=== PATIENT | male | born 1970 | race African-American/Black ===

== ENCOUNTER 2021-03-16 13:49 | Inpatient (IN) | payer BC ==
[~2021-03-16] VITALS: Ht 193 cm; Wt 154.6 kg
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
[2021-03-16 13:52] VITALS: BP 148/88
[2021-03-16 14:51] LABS: CREATININE 1.4 mg/dL (0.6-1.3); POTASSIUM 3.4 mmol/L (3.5-5.1)
[2021-03-16 15:01] LABS: PROTIME 10.9 Seconds (9.20-11.50)
[2021-03-16 15:09] LABS: ALBUMIN 3.3 g/dL (3.4-5.0); TOTAL PROTEIN 7.3 g/dL (6.4-8.2)
[2021-03-16 15:30] LABS: ABSOLUTE LYMPHOCYTES 0.5 thou/uL (0.8-5.3); ABSOLUTE MONOCYTES 0.3 thou/uL (0.0-1.2); ABSOLUTE NEUTROPHILS 2.9 thou/uL (1.6-8.1); BASOPHILS 0.3 %; HEMATOCRIT 41.2 % (42.0-52.0); HEMOGLOBIN 14.7 gm/dL (14.0-18.0); LYMPHOCYTES 13.3 %; MCH 28.9 pg (26.0-34.0); MCHC 35.7 g/dL (28.0-37.0); MCV 80.9 fL (80.0-100.0); MONOCYTES 8.6 %; MPV 8.6 fl. (7.2-11.1); NUCLEATED RBCS 0 /100WBC; PLATELET COUNT* 113 thou/uL (150-400); POLYS 77.8 %; RDW-CV 13.1 % (10.5-14.5); WBC 3.8 thou/uL (4.0-11.0)
--- NOTE | 2021-03-16 16:09 | EKG ---
[place] [address] ELECTROCARDIOGRAM REPORT Name: QUINTON CASTELLANOS Room: [place] [address] ADM IN ..#: [id number] Admission: 03/16/21 Attend Phys: Devonte Carroll, Discharge: Date of : 74 Date of Service: 03/16/21 1418 Report #: [id number] THIS REPORT FOR: //name// [facility] ED Test Date: 2021-03-16 Test Time: 14:18:39 Pat Name: QUINTON CASTELLANOS Department: Room: [facility] Gender: M [employer] Soup: LC : 1970 Requested By: Alonzo Watts Order Number: [id number] MD: Jesus Voss Measurements Intervals [place] Rate: 85 P: 56 WA: 162 QRS: -18 QRSD: 92 T: 23 QT: 384 QTc: 457 Interpretive Statements Sinus rhythm Probable left atrial enlargement Inferior infarct, old No previous ECG available for comparison Electronically Signed On 03-16-2021 16:09:18 CDT by Jesus Voss [email or web address] <ELECTRONICALLY SIGNED> By: Jesus Voss MD, FACC 03/16/21 1609 1418 1418 Jesus Voss MD, [facility] /EPI
[2021-03-16 17:01] VITALS: BP 119/68
[2021-03-16 17:48] VITALS: BP 147/92
[2021-03-16] MEDS ORDERED: HYDROCHLOROTHIA25 M1 PO (18:10)
[2021-03-16] MEDS ORDERED: NORVASC5 MG PO (18:10)
[2021-03-16] MEDS ORDERED: PROAIR HFA8.5 GM INH (18:10)
[2021-03-16 18:46] VITALS: BP 132/84; BP 143/94
[2021-03-16 20:00] VITALS: BP 143/94
[2021-03-16 22:33] LABS: URINE BILIRUBIN NEGATIVE (Negative); URINE BLOOD 3+ (Negative); URINE COLOR YELLOW; URINE GLUCOSE-RANDOM 1+ (Negative); URINE KETONES TRACE (Negative); URINE LEUKOCYTES-REFLEX NEGATIVE (Negative); URINE NITRITE-REFLEX NEGATIVE (Negative); URINE PROTEIN 3+ (Negative); URINE SPECIFIC GRAVITY >= 1.030 (1.005-1.030)
[2021-03-16 22:35] LABS: URINE CLARITY HAZY
[2021-03-16 22:39] LABS: AMP/METHAMP Negative (Negative); BARBITURATES Negative (Negative); BENZODIAZEPINES Negative (Negative); COCAINE Negative (Negative); METHADONE Negative (Negative); OPIATES Negative (Negative); PCP Negative (Negative); THC Negative (Negative)
[2021-03-16 22:42] LABS: BACTERIA-REFLEX None Seen /HPF (None Seen); CASTS None Seen /LPF (None Seen); CRYSTALS None Seen /LPF (None Seen); SQUAMOUS 0-3 Few /LPF (0-3); URINE RBC 0-2 Rare /HPF (0-2); URINE WBC-REFLEX None Seen /HPF (0-5)
[2021-03-17] VITALS: BP 140/93
[2021-03-17 04:04] VITALS: BP 134/68
[2021-03-17 04:23] LABS: ABSOLUTE LYMPHOCYTES 0.5 thou/uL (0.8-5.3); ABSOLUTE MONOCYTES 0.2 thou/uL (0.0-1.2); ABSOLUTE NEUTROPHILS 3.3 thou/uL (1.6-8.1); BASOPHILS 0.2 %; HEMATOCRIT 38.5 % (42.0-52.0); HEMOGLOBIN 13.7 gm/dL (14.0-18.0); LYMPHOCYTES 11.2 %; MCH 28.8 pg (26.0-34.0); MCHC 35.7 g/dL (28.0-37.0); MCV 80.6 fL (80.0-100.0); MPV 8.1 fl. (7.2-11.1); NUCLEATED RBCS 0 /100WBC; PLATELET COUNT* 134 thou/uL (150-400); POLYS 82.6 %; RBC 4.77 mil/uL (4.50-6.00); RDW-CV 12.9 % (10.5-14.5)
[2021-03-17 05:27] LABS: ALBUMIN 2.9 g/dL (3.4-5.0); CALCIUM 7.8 mg/dL (8.5-10.1); CREATININE 1.3 mg/dL (0.6-1.3); MAGNESIUM 2.3 mg/dL (1.8-2.4); TOTAL BILIRUBIN 0.8 mg/dL (<0.1-1.0)
[2021-03-17 07:51] VITALS: BP 132/77
[2021-03-17 08:46] LABS: BE 5.4 mmol/L (-2 to +3); PCO2 41.1 mmHg (35.0-45.0); pH 7.474 (7.340-7.450)
[2021-03-17 16:00] VITALS: BP 122/79
[2021-03-17 18:29] LABS: CALCIUM 7.8 mg/dL (8.5-10.1); CREATININE 1.3 mg/dL (0.6-1.3); MAGNESIUM 2.3 mg/dL (1.8-2.4); POTASSIUM 3.9 mmol/L (3.5-5.1)
[2021-03-17 18:31] LABS: ALBUMIN 2.8 g/dL (3.4-5.0); DIRECT BILIRUBIN 0.4 mg/dL (<0.1-0.3); TOTAL BILIRUBIN 0.7 mg/dL (<0.1-1.0)
[2021-03-17 19:43] VITALS: BP 120/70; BP 121/66
[2021-03-17 20:00] VITALS: BP 138/83
[2021-03-18] VITALS: BP 108/56
[2021-03-18 03:39] VITALS: BP 110/63
[2021-03-18 05:04] LABS: ABSOLUTE LYMPHOCYTES 0.7 thou/uL (0.8-5.3); ABSOLUTE MONOCYTES 0.7 thou/uL (0.0-1.2); BASOPHILS 0.1 %; HEMATOCRIT 38.8 % (42.0-52.0); HEMOGLOBIN 13.6 gm/dL (14.0-18.0); LYMPHOCYTES 9.3 %; MCH 28.4 pg (26.0-34.0); MCV 81.2 fL (80.0-100.0); NUCLEATED RBCS 0 /100WBC; PLATELET COUNT* 201 thou/uL (150-400); POLYS 81.6 %; RBC 4.78 mil/uL (4.50-6.00); RDW-CV 12.8 % (10.5-14.5); WBC 7.4 thou/uL (4.0-11.0)
[2021-03-18 05:25] LABS: ALBUMIN 2.8 g/dL (3.4-5.0); CALCIUM 8.2 mg/dL (8.5-10.1); CREATININE 1.3 mg/dL (0.6-1.3); MAGNESIUM 2.4 mg/dL (1.8-2.4); TOTAL BILIRUBIN 0.8 mg/dL (<0.1-1.0); TOTAL PROTEIN 6.9 g/dL (6.4-8.2)
[2021-03-18 08:43] VITALS: BP 120/82
[2021-03-18 11:53] VITALS: BP 117/69
[2021-03-18 16:05] VITALS: BP 131/82
[2021-03-18 17:46] LABS: CALCIUM 8.5 mg/dL (8.5-10.1); CREATININE 1.4 mg/dL (0.6-1.3); MAGNESIUM 2.6 mg/dL (1.8-2.4)
[2021-03-18 20:00] VITALS: BP 152/93
[2021-03-19 00:08] VITALS: BP 113/71
[2021-03-19 04:11] VITALS: BP 136/73
[2021-03-19 05:52] LABS: HEMATOCRIT 39.1 % (42.0-52.0); HEMOGLOBIN 13.7 gm/dL (14.0-18.0); MCH 28.3 pg (26.0-34.0); MCHC 34.9 g/dL (28.0-37.0); MCV 81.1 fL (80.0-100.0); NUCLEATED RBCS 0 /100WBC; PLATELET COUNT* 252 thou/uL (150-400); RBC 4.82 mil/uL (4.50-6.00); RDW-CV 12.7 % (10.5-14.5); WBC 9.9 thou/uL (4.0-11.0)
[2021-03-19 06:02] LABS: PREALBUMIN 14.6 mg/dL (18.0-35.7)
[2021-03-19 06:08] LABS: ALBUMIN 2.8 g/dL (3.4-5.0); CALCIUM 8.1 mg/dL (8.5-10.1); CREATININE 1.3 mg/dL (0.6-1.3); TOTAL BILIRUBIN 0.9 mg/dL (<0.1-1.0); TOTAL PROTEIN 6.7 g/dL (6.4-8.2)
[2021-03-19 07:30] VITALS: BP 142/88
[2021-03-19 08:20] LABS: ABSOLUTE LYMPHOCYTES 0.8 thou/uL (0.8-5.3); ABSOLUTE MONOCYTES 0.8 thou/uL (0.0-1.2); ABSOLUTE NEUTROPHILS 8.3 thou/uL (1.6-8.1); PLATELET ESTIMATE ADEQUATE
[2021-03-19 12:00] VITALS: BP 131/71; BP 136/88
[2021-03-19 16:00] VITALS: BP 135/86
[2021-03-19 16:12] LABS: CALCIUM 8.2 mg/dL (8.5-10.1); CREATININE 1.4 mg/dL (0.6-1.3); POTASSIUM 3.9 mmol/L (3.5-5.1); TOTAL BILIRUBIN 0.9 mg/dL (<0.1-1.0); TOTAL PROTEIN 7.2 g/dL (6.4-8.2)
[2021-03-19 20:00] VITALS: BP 135/84
[2021-03-20 00:40] VITALS: BP 144/76
[2021-03-20 04:27] VITALS: BP 135/86
[2021-03-20 07:05] LABS: ABSOLUTE BASOPHILS 0.1 thou/uL (0.0-0.2); ABSOLUTE LYMPHOCYTES 0.7 thou/uL (0.8-5.3); ABSOLUTE MONOCYTES 0.7 thou/uL (0.0-1.2); ABSOLUTE NEUTROPHILS 6.8 thou/uL (1.6-8.1); BASOPHILS 0.8 %; EOSINOPHILS 0.1 %; HEMOGLOBIN 13.9 gm/dL (14.0-18.0); LYMPHOCYTES 8.2 %; MCH 28.4 pg (26.0-34.0); MCHC 34.7 g/dL (28.0-37.0); MCV 81.7 fL (80.0-100.0); MONOCYTES 8.5 %; MPV 7.9 fl. (7.2-11.1); NUCLEATED RBCS 0 /100WBC; PLATELET COUNT* 253 thou/uL (150-400); POLYS 82.4 %; RBC 4.89 mil/uL (4.50-6.00); RDW-CV 12.8 % (10.5-14.5); WBC 8.3 thou/uL (4.0-11.0)
[2021-03-20 07:28] LABS: ALBUMIN 3.1 g/dL (3.4-5.0); CALCIUM 8.2 mg/dL (8.5-10.1); CREATININE 1.2 mg/dL (0.6-1.3); POTASSIUM 4.2 mmol/L (3.5-5.1); TOTAL BILIRUBIN 0.9 mg/dL (<0.1-1.0); TOTAL PROTEIN 6.7 g/dL (6.4-8.2)
[2021-03-20 07:44] LABS: PREALBUMIN 18.2 mg/dL (18.0-35.7)
[2021-03-20 08:00] VITALS: BP 124/73
[2021-03-20 13:03] VITALS: BP 141/86
--- NOTE | 2021-03-20 14:24 | 2DMMODE ---
[place] [address] 2 D/M-MODE ECHOCARDIOGRAM Name: QUINTON CASTELLANOS Room: [address] IN [facility]#: [id number] Admission: 03/16/21 Attend Phys: Devonte Carroll, Discharge: Date of : 74 Date of Service: 03/20/21 1423 Report #: [id number] THIS REPORT FOR: cc: FAM - No family physician/PCP FAM - No family physician/PCP Nba Peterson MD [facility] ~ APPROVED REPORT Study performed: 03/20/2021 10:02:21 EXAM: Comprehensive 2D, Doppler, and color-flow Echocardiogram Patient Location: In-Patient Room #: [facility] Status: routine BSA: 2.71 HR: 60 bpm BP: 135/86 mmHg Rhythm: NSR Other Information Study Quality: Good Indications Dyspnea 2D Dimensions IVSd: 11.24 (7-11mm) LVOT Diam: 24.66 (18-24mm) LVDd: 50.93 mm PWd: 10.85 (7-11mm) Ascending Ao: 33.34 (22-36mm) LVDs: 36.35 (25-40mm) Volumes Left Atrial Volume (Systole) LA ESV Index: 16.20 mL/m2 Aortic Valve AoV Peak Paco.: 1.17 m/s AO Peak Gr.: 5.43 mmHg LVOT Max P.87 mmHg AO Mean Gr.: 3.22 mmHg LVOT Mean P.96 mmHg LVOT Max V: 0.68 m/s AO V2 VTI: 22.58 cm LVOT Mean V: 0.45 m/s ALF (VTI): 3.26 cm2 LVOT V1 VTI: 15.41 [place] [address] 2 D/M-MODE ECHOCARDIOGRAM Name: QUINTON CASTELLANOS Room: [address] IN [facility]#: [id number] Admission: 03/16/21 Attend Phys: Devonte Carroll, Discharge: Date of : 74 Date of Service: 03/20/21 1423 Report #: [id number] E/A Ratio: 1.03 MV Decel. Time: 294.22 ms MV E Max Paco.: 0.54 m/s MV PHT: 85.32 ms MVA (PHT): 2.58 cm2 TDI E/Lateral E': 6.75 E/Medial E': 6.75 Medial E' Paco.: 0.08 m/s Lateral E' Paco.: 0.08 m/s Pulmonary Valve PV Peak Paco.: 0.97 m/s PV Peak Gr.: 3.78 mmHg Left Ventricle The left ventricle is normal size. There is normal LV segmental wall motion. There is normal left ventricular wall thickness. Left ventricular systolic function is normal. The left ventricular ejection fraction is within the normal range. LVEF is 55-60%. The left ventricular diastolic function is normal. Right Ventricle The right ventricle is normal size. The right ventricular systolic function is normal. Atria The left atrium size is normal. The right atrium size is normal. Aortic Valve The aortic valve is normal in structure. No aortic regurgitation is present. There is no aortic valvular stenosis. Mitral Valve The mitral valve is normal in structure. There is no mitral valve regurgitation noted. No evidence of mitral valve stenosis. Tricuspid Valve The tricuspid valve is normal in structure. Trace tricuspid regurgitation. Unable to assess PA pressure. Pulmonic Valve The pulmonary valve is normal in structure. Mild pulmonic reg[place]itation[place] [address] 2 D/M-MODE ECHOCARDIOGRAM Name: QUINTON CASTELLANOS Room: [address]#: [id number] Admission: 03/16/21 Attend Phys: Devonte Carroll, Discharge: Date of : 74 Date of Service: 03/20/21 1423 Report #: [id number] The aortic root is normal in size. IVC is not well visualized. Pericardium There is no pericardial effusion. <Conclusion> Left ventricular systolic function is normal. The left ventricular ejection fraction is within the normal range. <ELECTRONICALLY SIGNED> By: Nba Peterson MD, [facility] 03/20/21 1423 1423 1423 Nba Peterson MD, FAC /INF
[2021-03-20 16:00] VITALS: BP 139/89
--- NOTE | 2021-03-20 16:40 | CON ---
[address] [address] CONSULTATION Name: QUINTON CASTELLANOS Room: [address] IN .R.#: [id number] Admission: 03/16/21 Attend Phys: Devonte Carroll MD Discharge: Date of : 74 Report #: [id number] THIS REPORT FOR: cc: VERN - Jaelyn family physician/PCP VERN - No family physician/PCP Hernán Ayala MD ~ DATE OF CONSULTATION: 03/17/2021 REQUESTING PHYSICIAN: Devonte Carroll MD. INDICATION FOR CONSULTATION: Acute hypoxemic respiratory failure secondary to COVID-19. HISTORY OF PRESENT ILLNESS: A 51-year-old gentleman. He has a body mass index of 39 and likely has previously undiagnosed obstructive sleep apnea. Otherwise, does not have any other past medical history, is now admitted with COVID-19. He has had shortness of breath. He has been coughing with bringing up primarily clear, but has brought up some brown and yellow sputum as well has had a fever. He also has had nausea and has been anorexic. Currently, the patient is not maintaining O2 saturation on heated high-flow nasal cannula and therefore, he is on a BiPAP. The patient in fact appears to be comfortable on a BiPAP and AVAPS mode with 100% FiO2, in fact sitting comfortably in chair. I am told that briefly he was able to come off for meals earlier. REVIEW OF SYSTEMS: The patient's review of systems for 12 points is negative except as mentioned above. PAST MEDICAL HISTORY: Obesity with a body mass index of 39, otherwise unremarkable. SOCIAL HISTORY: Lifetime nonsmoker. No known history of heavy alcohol use or illegal drug use. CURRENT MEDICATIONS: List in My 1% reviewed. HOME MEDICATIONS: He was not on any home medications. FAMILY HISTORY: His is also admitted to our hospital with COVID-19. PHYSICAL EXAMINATION: GENERAL: He is alert, awake and oriented. He is on BiPAP and AVAPS mode, settings are as documented, 100% FIO2. He is maintaining O2 saturation in the high 90s with this. VITAL SIGNS: He has a pulse of 77 and a blood pressure of 122/79, respiratory rate was around 70-80 and he is afebrile with a temperature of 36.7. [place] [address] CONSULTATION Name: QUINTON CASTELLANOS Room: [address]#: [id number] Admission: 03/16/21 Attend Phys: Devonte Carroll MD Discharge: Date of : 74 Report #: [id number] index 39. HEENT: Head is normocephalic and atraumatic. Pupils are equal and reactive. He has a narrow airway. His mucous membranes do appear to be moist. NECK: Does not show raised JVP, asymmetry, mass or lymph nodes. CHEST: Symmetrical expansion on inspection and palpation. On auscultation, breath sounds are bilaterally equal, but decreased. I do not hear any added sounds. HEART: Regular. There is no murmur. ABDOMEN: Soft and nontender. EXTREMITIES: Lower extremities showed trace edema only. No calf tenderness. SKIN: Dry and intact. NEUROLOGIC: Moves all extremities bilaterally equally and spontaneously with no focal deficit identified. LABORATORY DATA: The patient's chest x-ray is reviewed and is consistent with ARDS secondary to COVID-19. The patient's arterial blood gas in [facility] reviewed, show acute hypoxemic respiratory failure. The patient's CBC and chemistries, which do show elevation in creatinine as well as CPK in [facility] reviewed. Coagulation studies in [facility] reviewed. ASSESSMENT AND PLAN: 1. Acute hypoxemic respiratory failure secondary to COVID-19. We will keep him on BiPAP while asleep and as needed. It appears that he is needing BiPAP while awake as well at this time due to severe hypoxemia. 2. COVID-19 with acute respiratory distress syndrome. We will continue with dexamethasone. If he fails to improve, potentially we can increase dose to 10 mg b.i.d.; however, I will expect limited benefit in further increasing the dose of dexamethasone. For now, we will also continue with Remdesivir, but we will need to watch LFTs closely and may need to discontinue Remdesivir if LFTs rise. I did give him 1 dose of Actemra. He has received 1 unit of convalescent plasma. We will go ahead and give him another unit as well. 3. Pulmonary infiltrates. I agree with ceftriaxone and doxycycline as ordered by Dr. Carroll. Would obtain a sputum culture if possible. We will obtain a nasal swab for Methicillin-Resistant Staphylococcus aureus. 4. Rhabdomyolysis and renal insufficiency. I ordered repeat labs now. We will need to watch his fluid status closely. He is very hypoxemic and therefore he may not tolerate being in significant positive balance, currently does have normal saline running at 100 for rhabdomyolysis. I ordered labs now. We will review these and then advise, we may need to continue some IV fluids because of rhabdomyolysis, but as long as his creatinine is maintained, I may in fact give him Lasix at the same time to avoid significantly positive balances. 5. Transaminitis. LFTs are elevated. We will obtain a lipase level as well. 6. Suspected underlying obstructive sleep apnea, see discussion above. 7. Elevated D-dimer. We will do venous Dopplers. We will also do an echo, [facility] [address] [place] [address] CONSULTATION Name: QUINTON CASTELLANOS Room: [address] IN [facility]#: [id number] Admission: 03/16/21 Attend Phys: Devonte Carroll MD Discharge: Date of : 74 Report #: [id number] pending further evaluation. I intended to keep the Lovenox dose at intermediate level. I will review creatinine this evening and then adjust Lovenox. 8. Clostridium difficile prophylaxis, Lactinex. 9. Gastrointestinal prophylaxis, already on Protonix. 10. Hyperglycemia is on an insulin sliding scale. 11. The patient is critically ill with acute hypoxemic respiratory failure and acute respiratory distress syndrome secondary to COVID-19. Total time spent providing critical care to this patient today is 41 minutes. <ELECTRONICALLY SIGNED> By: Hernán Ayala MD 03/20/21 1640 1633 [id number] e Ayala MD /nt
[2021-03-20 20:00] VITALS: BP 156/86
[2021-03-21 00:16] VITALS: BP 151/87
[2021-03-21 04:23] VITALS: BP 137/83
[2021-03-21 05:35] LABS: ABSOLUTE LYMPHOCYTES 0.8 thou/uL (0.8-5.3); ABSOLUTE MONOCYTES 0.7 thou/uL (0.0-1.2); ABSOLUTE NEUTROPHILS 6.7 thou/uL (1.6-8.1); BASOPHILS 0.1 %; HEMATOCRIT 39.3 % (42.0-52.0); HEMOGLOBIN 13.8 gm/dL (14.0-18.0); LYMPHOCYTES 9.4 %; MCH 28.3 pg (26.0-34.0); MCHC 35.2 g/dL (28.0-37.0); MCV 80.5 fL (80.0-100.0); MPV 7.2 fl. (7.2-11.1); NUCLEATED RBCS 0 /100WBC; PLATELET COUNT* 266 thou/uL (150-400); POLYS 82.5 %; RBC 4.88 mil/uL (4.50-6.00); RDW-CV 12.7 % (10.5-14.5); WBC 8.1 thou/uL (4.0-11.0)
[2021-03-21 06:22] LABS: ALBUMIN 3.1 g/dL (3.4-5.0); CREATININE 1.1 mg/dL (0.6-1.3); MAGNESIUM 2.5 mg/dL (1.8-2.4); POTASSIUM 4.2 mmol/L (3.5-5.1); TOTAL BILIRUBIN 0.9 mg/dL (<0.1-1.0); TOTAL PROTEIN 6.5 g/dL (6.4-8.2)
[2021-03-21 08:15] VITALS: BP 139/77
[2021-03-21 14:26] VITALS: BP 130/85
[2021-03-21 18:26] VITALS: BP 128/82
[2021-03-21 20:00] VITALS: BP 147/95
[2021-03-22] VITALS: BP 142/89
[2021-03-22 04:56] VITALS: BP 134/77
[2021-03-22 08:00] VITALS: BP 115/80
[2021-03-22 16:21] LABS: CALCIUM 8.4 mg/dL (8.5-10.1); CREATININE 1.2 mg/dL (0.6-1.3); MAGNESIUM 2.5 mg/dL (1.8-2.4); POTASSIUM 4.5 mmol/L (3.5-5.1)
[2021-03-22 17:05] VITALS: BP 122/78
[2021-03-22 18:48] VITALS: BP 134/69
[2021-03-22 20:35] VITALS: BP 138/94
[2021-03-23 01:12] VITALS: BP 119/74
[2021-03-23 04:21] LABS: ABSOLUTE LYMPHOCYTES 0.6 thou/uL (0.8-5.3); ABSOLUTE MONOCYTES 0.6 thou/uL (0.0-1.2); BASOPHILS 0.2 %; EOSINOPHILS 0.3 %; HEMATOCRIT 39.8 % (42.0-52.0); LYMPHOCYTES 5.1 %; MCH 28.6 pg (26.0-34.0); MCHC 35.1 g/dL (28.0-37.0); MCV 81.4 fL (80.0-100.0); MONOCYTES 5.4 %; MPV 7.8 fl. (7.2-11.1); NUCLEATED RBCS 0 /100WBC; PLATELET COUNT* 284 thou/uL (150-400); RBC 4.89 mil/uL (4.50-6.00); RDW-CV 12.8 % (10.5-14.5); WBC 11.2 thou/uL (4.0-11.0)
[2021-03-23 04:34] LABS: ALBUMIN 3.3 g/dL (3.4-5.0); CALCIUM 8.3 mg/dL (8.5-10.1); CREATININE 1.2 mg/dL (0.6-1.3); MAGNESIUM 2.4 mg/dL (1.8-2.4); POTASSIUM 4.2 mmol/L (3.5-5.1); TOTAL BILIRUBIN 0.9 mg/dL (<0.1-1.0); TOTAL PROTEIN 6.4 g/dL (6.4-8.2)
[2021-03-23 05:33] VITALS: BP 152/91
[2021-03-23 08:33] VITALS: BP 132/87
[2021-03-23 12:00] VITALS: BP 120/86
[2021-03-23 16:51] VITALS: BP 117/75
[2021-03-23 20:50] VITALS: BP 117/82
[2021-03-24 00:30] VITALS: BP 145/85
[2021-03-24 04:32] LABS: HEMATOCRIT 40.2 % (42.0-52.0); HEMOGLOBIN 13.9 gm/dL (14.0-18.0); MCH 28.5 pg (26.0-34.0); MCHC 34.6 g/dL (28.0-37.0); MCV 82.4 fL (80.0-100.0); MPV 7.8 fl. (7.2-11.1); NUCLEATED RBCS 0 /100WBC; PLATELET COUNT* 282 thou/uL (150-400); RBC 4.88 mil/uL (4.50-6.00); RDW-CV 12.9 % (10.5-14.5); WBC 13.5 thou/uL (4.0-11.0)
[2021-03-24 04:35] VITALS: BP 124/65
[2021-03-24 04:49] LABS: ALBUMIN 3.3 g/dL (3.4-5.0); CALCIUM 8.4 mg/dL (8.5-10.1); CREATININE 1.1 mg/dL (0.6-1.3); MAGNESIUM 2.5 mg/dL (1.8-2.4); POTASSIUM 4.4 mmol/L (3.5-5.1); TOTAL PROTEIN 6.4 g/dL (6.4-8.2)
[2021-03-24 07:19] LABS: ABSOLUTE LYMPHOCYTES 0.5 thou/uL (0.8-5.3); ABSOLUTE MONOCYTES 0.1 thou/uL (0.0-1.2); ABSOLUTE NEUTROPHILS 12.8 thou/uL (1.6-8.1); PLATELET ESTIMATE ADEQUATE
[2021-03-24 08:00] VITALS: BP 100/61; BP 115/66
[2021-03-24 11:47] VITALS: BP 110/69
[2021-03-24 16:22] VITALS: BP 114/71
[2021-03-24 20:00] VITALS: BP 132/85
[2021-03-25 00:36] VITALS: BP 143/78
[2021-03-25 04:26] VITALS: BP 137/74
[2021-03-25 04:45] LABS: ABSOLUTE EOSINOPHILS 0.1 thou/uL (0.0-0.7); ABSOLUTE LYMPHOCYTES 0.7 thou/uL (0.8-5.3); ABSOLUTE MONOCYTES 0.6 thou/uL (0.0-1.2); ABSOLUTE NEUTROPHILS 12.2 thou/uL (1.6-8.1); BASOPHILS 0.1 %; EOSINOPHILS 0.8 %; HEMATOCRIT 39.7 % (42.0-52.0); HEMOGLOBIN 13.6 gm/dL (14.0-18.0); LYMPHOCYTES 4.8 %; MCH 28.2 pg (26.0-34.0); MCHC 34.3 g/dL (28.0-37.0); MCV 82.2 fL (80.0-100.0); MONOCYTES 4.7 %; MPV 8.2 fl. (7.2-11.1); NUCLEATED RBCS 0 /100WBC; PLATELET COUNT* 279 thou/uL (150-400); POLYS 89.6 %; RBC 4.83 mil/uL (4.50-6.00); RDW-CV 12.7 % (10.5-14.5); WBC 13.6 thou/uL (4.0-11.0)
[2021-03-25 04:55] LABS: ALBUMIN 3.3 g/dL (3.4-5.0); CALCIUM 8.6 mg/dL (8.5-10.1); CREATININE 1.1 mg/dL (0.6-1.3); MAGNESIUM 2.6 mg/dL (1.8-2.4); POTASSIUM 4.5 mmol/L (3.5-5.1); TOTAL PROTEIN 6.3 g/dL (6.4-8.2)
[2021-03-25 08:00] VITALS: BP 132/87
[2021-03-25 12:12] VITALS: BP 120/81
[2021-03-25 15:59] VITALS: BP 137/84
[2021-03-25 20:00] VITALS: BP 129/79
[2021-03-26 00:26] VITALS: BP 140/83
[2021-03-26 04:18] LABS: HEMATOCRIT 38.4 % (42.0-52.0); HEMOGLOBIN 13.2 gm/dL (14.0-18.0); MCH 28.2 pg (26.0-34.0); MCHC 34.5 g/dL (28.0-37.0); MCV 81.7 fL (80.0-100.0); MPV 8.4 fl. (7.2-11.1); RBC 4.69 mil/uL (4.50-6.00); RDW-CV 12.9 % (10.5-14.5); WBC 14.7 thou/uL (4.0-11.0)
[2021-03-26 04:26] VITALS: BP 117/81
[2021-03-26 04:44] LABS: ALBUMIN 3.2 g/dL (3.4-5.0); CALCIUM 8.5 mg/dL (8.5-10.1); CREATININE 1.1 mg/dL (0.6-1.3); MAGNESIUM 2.5 mg/dL (1.8-2.4); POTASSIUM 4.3 mmol/L (3.5-5.1); TOTAL BILIRUBIN 0.8 mg/dL (<0.1-1.0); TOTAL PROTEIN 6.3 g/dL (6.4-8.2)
[2021-03-26 08:00] VITALS: BP 118/72
[2021-03-26 12:58] VITALS: BP 120/71
[2021-03-26 16:13] VITALS: BP 111/73
[2021-03-26 20:00] VITALS: BP 138/83
[2021-03-27 00:49] VITALS: BP 140/84
[2021-03-27 04:29] LABS: HEMATOCRIT 38.6 % (42.0-52.0); MCH 28.1 pg (26.0-34.0); MCHC 33.7 g/dL (28.0-37.0); MCV 83.3 fL (80.0-100.0); MPV 8.9 fl. (7.2-11.1); RBC 4.63 mil/uL (4.50-6.00); RDW-CV 12.8 % (10.5-14.5); WBC 16.4 thou/uL (4.0-11.0)
[2021-03-27 04:51] LABS: ALBUMIN 3.1 g/dL (3.4-5.0); CALCIUM 8.4 mg/dL (8.5-10.1); CREATININE 1.1 mg/dL (0.6-1.3); MAGNESIUM 2.5 mg/dL (1.8-2.4); POTASSIUM 4.9 mmol/L (3.5-5.1); TOTAL BILIRUBIN 0.8 mg/dL (<0.1-1.0); TOTAL PROTEIN 6.1 g/dL (6.4-8.2)
[2021-03-27 05:06] LABS: GLYCOHEMOGLOBIN (HGB A1C) 8.3 % (4.8-5.6)
[2021-03-27 06:04] VITALS: BP 134/77
[2021-03-27 08:00] VITALS: BP 121/83
[2021-03-27 11:37] VITALS: BP 126/79
[2021-03-27 16:15] VITALS: BP 116/78
[2021-03-27 20:15] VITALS: BP 124/84
[2021-03-28 00:48] VITALS: BP 140/85
[2021-03-28 04:22] LABS: HEMATOCRIT 38.1 % (42.0-52.0); MCH 28.2 pg (26.0-34.0); MCHC 34.2 g/dL (28.0-37.0); MCV 82.6 fL (80.0-100.0); MPV 8.7 fl. (7.2-11.1); RBC 4.61 mil/uL (4.50-6.00); RDW-CV 12.9 % (10.5-14.5)
[2021-03-28 04:27] LABS: CALCIUM 8.5 mg/dL (8.5-10.1); CREATININE 1.1 mg/dL (0.6-1.3); MAGNESIUM 2.4 mg/dL (1.8-2.4); POTASSIUM 4.8 mmol/L (3.5-5.1)
[2021-03-28 04:48] VITALS: BP 136/96
[2021-03-28 08:00] VITALS: BP 120/75
[2021-03-28 12:00] VITALS: BP 107/63; BP 119/79
[2021-03-28 20:54] VITALS: BP 114/75
[2021-03-29 00:25] VITALS: BP 146/81
[2021-03-29 05:02] VITALS: BP 129/129
[2021-03-29 08:02] VITALS: BP 117/81
[2021-03-29 12:03] VITALS: BP 138/83
[2021-03-29 16:01] LABS: URINE BILIRUBIN NEGATIVE (Negative); URINE BLOOD NEGATIVE (Negative); URINE CLARITY CLEAR; URINE COLOR YELLOW; URINE GLUCOSE-RANDOM 3+ (Negative); URINE KETONES NEGATIVE (Negative); URINE LEUKOCYTES-REFLEX NEGATIVE (Negative); URINE NITRITE-REFLEX NEGATIVE (Negative); URINE PROTEIN NEGATIVE (Negative); URINE UROBILINOGEN 0.2 E.U./dl (0.2-1.0)
[2021-03-29 17:53] VITALS: BP 125/86
[2021-03-29 20:44] VITALS: BP 134/87
[2021-03-29 21:27] LABS: CREATININE 1.4 mg/dL (0.6-1.3); POTASSIUM 4.7 mmol/L (3.5-5.1)
[2021-03-29 21:37] LABS: ALBUMIN 3.4 g/dL (3.4-5.0); TOTAL BILIRUBIN 0.6 mg/dL (<0.1-1.0); TOTAL PROTEIN 6.2 g/dL (6.4-8.2)
[2021-03-29 22:07] LABS: HEMATOCRIT 39.9 % (42.0-52.0); HEMOGLOBIN 13.7 gm/dL (14.0-18.0); MCH 28.8 pg (26.0-34.0); MCHC 34.3 g/dL (28.0-37.0); MCV 83.9 fL (80.0-100.0); MPV 8.7 fl. (7.2-11.1); NUCLEATED RBCS 0 /100WBC; PLATELET COUNT* 295 thou/uL (150-400); RBC 4.75 mil/uL (4.50-6.00); RDW-CV 13.2 % (10.5-14.5)
[2021-03-29 22:32] LABS: ABSOLUTE LYMPHOCYTES 2.1 thou/uL (0.8-5.3); ABSOLUTE MONOCYTES 0.5 thou/uL (0.0-1.2); ABSOLUTE NEUTROPHILS 20.5 thou/uL (1.6-8.1); PLATELET ESTIMATE ADEQUATE
[2021-03-30 01:26] VITALS: BP 146/87
[2021-03-30 04:26] VITALS: BP 132/86
[2021-03-30 04:46] LABS: ABSOLUTE LYMPHOCYTES 0.9 thou/uL (0.8-5.3); ABSOLUTE MONOCYTES 1.2 thou/uL (0.0-1.2); ABSOLUTE NEUTROPHILS 15.2 thou/uL (1.6-8.1); BASOPHILS 0.2 %; EOSINOPHILS 0.1 %; HEMATOCRIT 34.8 % (42.0-52.0); HEMOGLOBIN 12.1 gm/dL (14.0-18.0); LYMPHOCYTES 5.4 %; MCH 28.8 pg (26.0-34.0); MCHC 34.7 g/dL (28.0-37.0); MONOCYTES 6.9 %; MPV 8.5 fl. (7.2-11.1); NUCLEATED RBCS 0 /100WBC; PLATELET COUNT* 229 thou/uL (150-400); POLYS 87.4 %; RBC 4.19 mil/uL (4.50-6.00); RDW-CV 13.3 % (10.5-14.5); WBC 17.4 thou/uL (4.0-11.0)
[2021-03-30 05:09] LABS: ALBUMIN 2.8 g/dL (3.4-5.0); CALCIUM 8.2 mg/dL (8.5-10.1); CREATININE 1.2 mg/dL (0.6-1.3); POTASSIUM 3.8 mmol/L (3.5-5.1); TOTAL BILIRUBIN 0.6 mg/dL (<0.1-1.0); TOTAL PROTEIN 5.5 g/dL (6.4-8.2)
[2021-03-30 13:06] VITALS: BP 127/67
[2021-03-30 17:02] VITALS: BP 123/73
[2021-03-30 20:39] VITALS: BP 146/92
[2021-03-31 00:10] VITALS: BP 157/96
[2021-03-31 04:15] VITALS: BP 126/81
[2021-03-31 12:00] VITALS: BP 117/68
[2021-03-31 15:13] LABS: ABSOLUTE LYMPHOCYTES 0.6 thou/uL (0.8-5.3); ABSOLUTE MONOCYTES 0.6 thou/uL (0.0-1.2); ABSOLUTE NEUTROPHILS 11.6 thou/uL (1.6-8.1); BASOPHILS 0.3 %; EOSINOPHILS 0.2 %; HEMATOCRIT 38.1 % (42.0-52.0); HEMOGLOBIN 12.9 gm/dL (14.0-18.0); LYMPHOCYTES 4.9 %; MCH 28.2 pg (26.0-34.0); MCV 83.1 fL (80.0-100.0); MONOCYTES 4.8 %; MPV 8.8 fl. (7.2-11.1); NUCLEATED RBCS 0 /100WBC; PLATELET COUNT* 237 thou/uL (150-400); POLYS 89.8 %; RBC 4.59 mil/uL (4.50-6.00); RDW-CV 13.6 % (10.5-14.5); WBC 12.9 thou/uL (4.0-11.0)
[2021-03-31 15:25] LABS: ALBUMIN 3.1 g/dL (3.4-5.0); CALCIUM 8.3 mg/dL (8.5-10.1); CREATININE 1.3 mg/dL (0.6-1.3); POTASSIUM 4.3 mmol/L (3.5-5.1); TOTAL BILIRUBIN 0.6 mg/dL (<0.1-1.0); TOTAL PROTEIN 5.9 g/dL (6.4-8.2)
[2021-03-31 16:00] VITALS: BP 146/89
[2021-03-31 20:59] VITALS: BP 152/86
[2021-04-01 00:24] VITALS: BP 126/73
[2021-04-01 04:14] VITALS: BP 147/81
[2021-04-01 08:00] VITALS: BP 135/83
[2021-04-01] MEDS ORDERED: NEXIUM40 MG PO (12:05)
[2021-04-01] MEDS ORDERED: GLUCOTROL5 MG PO (12:05)
[2021-04-01 12:37] VITALS: BP 125/89
[2021-04-01 17:21] VITALS: BP 136/85
[2021-04-01 21:10] VITALS: BP 128/73
[2021-04-02] VITALS: BP 152/94
[2021-04-02 04:00] VITALS: BP 125/70
[2021-04-02 08:30] VITALS: BP 133/80
[2021-04-02 09:17] LABS: HEMATOCRIT 36.6 % (42.0-52.0); HEMOGLOBIN 12.3 gm/dL (14.0-18.0); MCH 28.2 pg (26.0-34.0); MCHC 33.6 g/dL (28.0-37.0); MCV 83.9 fL (80.0-100.0); MPV 8.8 fl. (7.2-11.1); RBC 4.36 mil/uL (4.50-6.00); RDW-CV 13.8 % (10.5-14.5); WBC 9.5 thou/uL (4.0-11.0)
[2021-04-02 09:30] LABS: CALCIUM 8.1 mg/dL (8.5-10.1); CREATININE 1.2 mg/dL (0.6-1.3); POTASSIUM 3.8 mmol/L (3.5-5.1)
[2021-04-02 12:00] VITALS: BP 131/76
[2021-04-02 16:00] VITALS: BP 148/98
[2021-04-02 20:50] VITALS: BP 153/87
[2021-04-03 00:32] VITALS: BP 140/89
[2021-04-03 05:44] VITALS: BP 133/88
[2021-04-03 12:36] VITALS: BP 137/96
[2021-04-03] MEDS ORDERED: METFORMIN HCL500 M3 PO (13:23)
[2021-04-03 15:07] VITALS: BP 137/96
[2021-04-03 15:09] VITALS: BP 137/96
[2021-04-03 16:19] VITALS: BP 137/96
== END 2021-04-03 20:25 | DRG 871 ==
LOC: M.ERS 13:49 → M.TBA-ER 14:55 → M.ORTHSURG 14:55
PROVIDERS: Family Medicine; Internal Medicine; Internal Medicine Critical Care Medicine; Pediatrics; ADMIT Internal Medicine; ATTEND Internal Medicine
PROC: XW033E5 Introduction of Remdesivir Anti-infective into Peripheral Vein, Percutaneous Approach, New Technology Group 5 (ICD-10-PCS; principal; 2021-03-16)
PROC: 5A09357 Assistance with Respiratory Ventilation, Less than 24 Consecutive Hours, Continuous Positive Airway Pressure (ICD-10-PCS; 2021-03-16)
PROC: 5A0935A Assistance with Respiratory Ventilation, Less than 24 Consecutive Hours, High Flow/Velocity Cannula (ICD-10-PCS; 2021-03-16)
PROC: XW13325 Transfusion of Convalescent Plasma (Nonautologous) into Peripheral Vein, Percutaneous Approach, New Technology Group 5 (ICD-10-PCS; 2021-03-16)
PROC: 5A0935A Assistance with Respiratory Ventilation, Less than 24 Consecutive Hours, High Flow/Velocity Cannula (ICD-10-PCS; 2021-03-17)
PROC: 05HF33Z Insertion of Infusion Device into Left Cephalic Vein, Percutaneous Approach (ICD-10-PCS; 2021-03-17)
PROC: XW033H5 Introduction of Tocilizumab into Peripheral Vein, Percutaneous Approach, New Technology Group 5 (ICD-10-PCS; 2021-03-17)
PROC: 5A09357 Assistance with Respiratory Ventilation, Less than 24 Consecutive Hours, Continuous Positive Airway Pressure (ICD-10-PCS; 2021-03-17)
PROC: B54NZZA Ultrasonography of Left Upper Extremity Veins, Guidance (ICD-10-PCS; 2021-03-17)
PROC: 5A09357 Assistance with Respiratory Ventilation, Less than 24 Consecutive Hours, Continuous Positive Airway Pressure (ICD-10-PCS; 2021-03-18)
PROC: 5A09357 Assistance with Respiratory Ventilation, Less than 24 Consecutive Hours, Continuous Positive Airway Pressure (ICD-10-PCS; 2021-03-19)
PROC: 5A09357 Assistance with Respiratory Ventilation, Less than 24 Consecutive Hours, Continuous Positive Airway Pressure (ICD-10-PCS; 2021-03-20)
PROC: 5A09357 Assistance with Respiratory Ventilation, Less than 24 Consecutive Hours, Continuous Positive Airway Pressure (ICD-10-PCS; 2021-03-21)
PROC: 5A09357 Assistance with Respiratory Ventilation, Less than 24 Consecutive Hours, Continuous Positive Airway Pressure (ICD-10-PCS; 2021-03-22)
PROC: 5A09357 Assistance with Respiratory Ventilation, Less than 24 Consecutive Hours, Continuous Positive Airway Pressure (ICD-10-PCS; 2021-03-23)
PROC: 5A09357 Assistance with Respiratory Ventilation, Less than 24 Consecutive Hours, Continuous Positive Airway Pressure (ICD-10-PCS; 2021-03-24)
PROC: 5A0935A Assistance with Respiratory Ventilation, Less than 24 Consecutive Hours, High Flow/Velocity Cannula (ICD-10-PCS; 2021-03-25)
PROC: 5A09357 Assistance with Respiratory Ventilation, Less than 24 Consecutive Hours, Continuous Positive Airway Pressure (ICD-10-PCS; 2021-03-25)
PROC: 5A09357 Assistance with Respiratory Ventilation, Less than 24 Consecutive Hours, Continuous Positive Airway Pressure (ICD-10-PCS; 2021-03-26)
PROC: 5A0935A Assistance with Respiratory Ventilation, Less than 24 Consecutive Hours, High Flow/Velocity Cannula (ICD-10-PCS; 2021-03-26)
PROC: 5A0935A Assistance with Respiratory Ventilation, Less than 24 Consecutive Hours, High Flow/Velocity Cannula (ICD-10-PCS; 2021-03-27)
PROC: 5A0935A Assistance with Respiratory Ventilation, Less than 24 Consecutive Hours, High Flow/Velocity Cannula (ICD-10-PCS; 2021-03-28)
PROC: 5A09357 Assistance with Respiratory Ventilation, Less than 24 Consecutive Hours, Continuous Positive Airway Pressure (ICD-10-PCS; 2021-03-28)
PROC: 5A09357 Assistance with Respiratory Ventilation, Less than 24 Consecutive Hours, Continuous Positive Airway Pressure (ICD-10-PCS; 2021-03-29)
PROC: 5A0935A Assistance with Respiratory Ventilation, Less than 24 Consecutive Hours, High Flow/Velocity Cannula (ICD-10-PCS; 2021-03-29)
PROC: 5A09357 Assistance with Respiratory Ventilation, Less than 24 Consecutive Hours, Continuous Positive Airway Pressure (ICD-10-PCS; 2021-03-30)
PROC: 5A0935A Assistance with Respiratory Ventilation, Less than 24 Consecutive Hours, High Flow/Velocity Cannula (ICD-10-PCS; 2021-03-30)
PROC: 5A09357 Assistance with Respiratory Ventilation, Less than 24 Consecutive Hours, Continuous Positive Airway Pressure (ICD-10-PCS; 2021-03-31)
PROC: 5A0935A Assistance with Respiratory Ventilation, Less than 24 Consecutive Hours, High Flow/Velocity Cannula (ICD-10-PCS; 2021-03-31)
PROC: 5A0935A Assistance with Respiratory Ventilation, Less than 24 Consecutive Hours, High Flow/Velocity Cannula (ICD-10-PCS; 2021-04-01)
PROC: 5A0935A Assistance with Respiratory Ventilation, Less than 24 Consecutive Hours, High Flow/Velocity Cannula (ICD-10-PCS; 2021-04-02)
PROC: 5A09357 Assistance with Respiratory Ventilation, Less than 24 Consecutive Hours, Continuous Positive Airway Pressure (ICD-10-PCS; 2021-04-02)
PROC: 5A0935A Assistance with Respiratory Ventilation, Less than 24 Consecutive Hours, High Flow/Velocity Cannula (ICD-10-PCS; 2021-04-03)
DX: A41.89 Other specified sepsis (principal); U07.1 COVID-19; J12.82 Pneumonia due to coronavirus disease 2019; J80 Acute respiratory distress syndrome; M62.82 Rhabdomyolysis; E66.2 Morbid (severe) obesity with alveolar hypoventilation; Z68.41 Body mass index [BMI] 40.0-44.9, adult; R74.01 Elevation of levels of liver transaminase levels; E11.65 Type 2 diabetes mellitus with hyperglycemia; D64.9 Anemia, unspecified; N28.9 Disorder of kidney and ureter, unspecified; Z79.899 Other long term (current) drug therapy